=== PATIENT | female | born 1935 | race Caucasian/White ===

== ENCOUNTER 2021-05-29 12:10 | Inpatient (IN) ==
[2021-05-29] MEDS ORDERED: 0.9 % Sodium Chloride 1,000 ML IVC ONE (12:50)
[2021-05-29 13:38] LABS: Hemoglobin 17.6 g/dL (11.5-15.4); Lymphocytes % 8.7 %
[2021-05-29 13:39] LABS: Basophils # 0.1 K/mcL (0.0-0.2); Basophils % 0.6 %; Hematocrit 54.7 % (35.3-44.9); Immature Granulocytes % 0.6 % (0-4); Immature Platelets 5.2 % (1.1-6.1); Lymphocytes # 0.8 K/mcL (0.6-4.6); Mean Corpuscular HGB Conc 32.2 g/dL (31.6-35.5); Mean Corpuscular Hemoglobin 32.7 pg (28.0-33.3); Mean Corpuscular Volume 101.7 fL (83.0-100.0); Mean Platelet Volume 10.2 fL (9.4-12.4); Monocytes % 11.5 %; Neutrophils # 6.9 K/mcL (1.6-8.9); Red Blood Count 5.38 M/mcL (3.82-4.97); Red Cell Distribution Width 14.2 % (11.5-14.5); Segmented Neutrophils % 78.6 %; White Blood Count 8.8 K/mcL (4.3-11.1)
[2021-05-29 13:42] LABS: INR 1.1; Prothrombin Time 12.7 Seconds (9.4-12.1)
[2021-05-29 13:45] LABS: Activated Partial Thrombo Time 28.5 Seconds (26.0-36.0)
[2021-05-29 13:58] LABS: Platelet Count 95 K/mcL (140-400)
[2021-05-29 14:00] LABS: Anisocytosis 1+ (Not Present); Large Platelets Present (Not Present); Platelet Estimate Slight Decrease (Normal)
[2021-05-29 14:23] LABS: Alanine Aminotransferase 54 Units/L (7-52); Albumin 4.3 g/dL (3.5-5.7); Albumin/Globulin Ratio 1.2 (1.1-2.2); Alkaline Phosphatase 85 Units/L (34-104); Aspartate Amino Transferase 173 Units/L (13-39); BUN/Creatinine Ratio 33 (6-26); Bilirubin,Total 1.1 mg/dL (0.3-1.0); Blood Urea Nitrogen 31 mg/dL (8-23); Calcium 9.5 mg/dL (8.6-10.3); Carbon Dioxide 24 mEq/L (23-29); Chloride 112 mEq/L (98-107); Creatine Kinase 4467 Units/L (30-223); Globulin 3.6 g/dL (2.4-3.5); Glucose 100 mg/dL (70-105); Osmolality,Calculated 315 (280-300); Potassium 3.8 mEq/L (3.5-5.1); Sodium 149 mEq/L (136-145); Total Protein 7.9 g/dL (6.4-8.9); eGFR For African Americans > 60 (> 60); eGFR For Non-African Americans 57 (> 60)
[2021-05-29] MEDS ORDERED: 0.9 % Sodium Chloride 1,000 ML IV ONE (16:37)
[2021-05-29 17:47] LABS: Adenovirus Not Detected (Not Detect); Coronavirus 229E Not Detected (Not Detect); Coronavirus HKU1 Not Detected (Not Detect); Coronavirus NL63 Not Detected (Not Detect); Coronavirus OC43 Not Detected (Not Detect)
[2021-05-29 17:48] LABS: Bordetella Pertussis Not Detected (Not Detect); Chlamydophila pneumoniae Not Detected (Not Detect); Human Metapneumovirus Not Detected (Not Detect); Human Rhinovirus/Enterovirus Not Detected (Not Detect); Influenza A Subtype 2009 H1 Not Detected (Not Detect); Influenza B Not Detected (Not Detect); Mycoplasma pneumoniae Not Detected (Not Detect); Parainfluenza Virus 1 Not Detected (Not Detect); Parainfluenza Virus 2 Not Detected (Not Detect); Parainfluenza Virus 3 Not Detected (Not Detect); Parainfluenza Virus 4 Not Detected (Not Detect); Respiratory Syncytial Virus Not Detected (Not Detect); SARS-CoV-2 DETECTED (Not Detect)
[2021-05-29] MEDS ORDERED: Ondansetron ODT 4 MG TAB.RAPDIS SL PRN (18:12)
[2021-05-29] MEDS ORDERED: Naloxone 0.4 MG/ML INJ IVP PRN (18:12)
[2021-05-29] MEDS ORDERED: Dexamethasone Sodium Phos/PF 10 MG/ML VIAL IVP ONE (18:32)
[2021-05-29] MEDS: D5% in 0.9% NACL 1,000 ML IVC SCH (19:01)
[2021-05-29 19:51] LABS: Uric Acid 6.2 mg/dL (2.3-7.6)
[2021-05-30] MEDS: D5% in 0.9% NACL 1,000 ML IVC SCH ×2 (05:12→14:11)
[2021-05-30 07:48] LABS: Red Cell Distribution Width 14.5 % (11.5-14.5)
[2021-05-30 07:51] LABS: Hematocrit 44.9 % (35.3-44.9); Hemoglobin 14.6 g/dL (11.5-15.4); Immature Platelets 6.4 % (1.1-6.1); Mean Corpuscular HGB Conc 32.5 g/dL (31.6-35.5); Mean Corpuscular Hemoglobin 32.4 pg (28.0-33.3); Mean Corpuscular Volume 99.8 fL (83.0-100.0); White Blood Count 6.9 K/mcL (4.3-11.1)
[2021-05-30 07:53] LABS: Platelet Count 96 K/mcL (140-400)
[2021-05-30] MEDS: dexAMETHasone 4 MG TABLET PO SCH (07:56)
[2021-05-30 08:08] LABS: Alanine Aminotransferase 47 Units/L (7-52); Albumin 3.3 g/dL (3.5-5.7); Albumin/Globulin Ratio 1.1 (1.1-2.2); Alkaline Phosphatase 63 Units/L (34-104); Aspartate Amino Transferase 127 Units/L (13-39); BUN/Creatinine Ratio 38 (6-26); Bilirubin,Total 0.6 mg/dL (0.3-1.0); Blood Urea Nitrogen 27 mg/dL (8-23); Calcium 8.1 mg/dL (8.6-10.3); Carbon Dioxide 25 mEq/L (23-29); Chloride 112 mEq/L (98-107); Cholesterol 136 mg/dL (< 200); Globulin 2.9 g/dL (2.4-3.5); Glucose 146 mg/dL (70-105); HDL Cholesterol 27 mg/dL (40-59); LDL Cholesterol,Calculated 87 mg/dL (< 100); Magnesium 2.4 mg/dL (1.6-2.6); Osmolality,Calculated 302 (280-300); Phosphorous 1.8 mg/dL (2.7-4.5); Potassium 3.9 mEq/L (3.5-5.1); Sodium 142 mEq/L (136-145); Total Protein 6.2 g/dL (6.4-8.9); Triglycerides 108 mg/dL (< 150); eGFR For African Americans > 60 (> 60); eGFR For Non-African Americans > 60 (> 60)
[2021-05-30 08:27] LABS: Lymphocytes # 0.9 K/mcL (0.6-4.6); Monocytes # 0.2 K/mcL (0.0-1.3); Neutrophils # 5.8 K/mcL (1.6-8.9); Platelet Estimate Decreased (Normal); Reactive Lymphocytes Present (Not Present)
[2021-05-30] MEDS: Budesonide/Formoterol 80/4.5 1 PUFF INH IH SCH ×2 (08:45→20:51)
[2021-05-30] MEDS ORDERED: *HR* Enoxaparin 40 MG/0.4 ML SYRINGE SQ ONE (11:13)
[2021-05-31] MEDS: D5% in 0.9% NACL 1,000 ML IVC SCH ×2 (04:38→19:24)
[2021-05-31] MEDS: dexAMETHasone 4 MG TABLET PO SCH (08:46)
[2021-05-31] MEDS: Budesonide/Formoterol 80/4.5 1 PUFF INH IH SCH ×2 (11:02→20:41)
[2021-05-31] MEDS: cephALEXin 500 MG CAPSULE PO SCH ×2 (12:27→19:57)
[2021-05-31 15:10] LABS: Mean Corpuscular Volume 99.1 fL (83.0-100.0)
[2021-05-31 15:11] LABS: Hematocrit 41.9 % (35.3-44.9); Immature Platelets 8.6 % (1.1-6.1); Mean Corpuscular HGB Conc 33.4 g/dL (31.6-35.5); Mean Corpuscular Hemoglobin 33.1 pg (28.0-33.3); Mean Platelet Volume 10.6 fL (9.4-12.4); Platelet Count 112 K/mcL (140-400); Red Blood Count 4.23 M/mcL (3.82-4.97); Red Cell Distribution Width 14.3 % (11.5-14.5); White Blood Count 13.6 K/mcL (4.3-11.1)
[2021-05-31 15:30] LABS: Basophils % 0.2 %; Immature Granulocytes % 1.2 % (0-4); Lymphocytes # 0.5 K/mcL (0.6-4.6); Lymphocytes % 3.5 %; Monocytes # 0.5 K/mcL (0.0-1.3); Monocytes % 3.7 %; Neutrophils # 12.4 K/mcL (1.6-8.9); Segmented Neutrophils % 91.4 %
[2021-05-31 15:32] LABS: BUN/Creatinine Ratio 29 (6-26); Blood Urea Nitrogen 19 mg/dL (8-23); Calcium 8.3 mg/dL (8.6-10.3); Carbon Dioxide 22 mEq/L (23-29); Chloride 109 mEq/L (98-107); Creatine Kinase 1066 Units/L (30-223); Glucose 198 mg/dL (70-105); Osmolality,Calculated 294 (280-300); Potassium 3.9 mEq/L (3.5-5.1); Sodium 138 mEq/L (136-145); eGFR For African Americans > 60 (> 60); eGFR For Non-African Americans > 60 (> 60)
[2021-06-01 05:50] LABS: Hematocrit 42.9 % (35.3-44.9); Hemoglobin 14.4 g/dL (11.5-15.4); Mean Corpuscular HGB Conc 33.6 g/dL (31.6-35.5)
[2021-06-01 05:52] LABS: Immature Platelets 9.2 % (1.1-6.1); Mean Corpuscular Hemoglobin 33.3 pg (28.0-33.3); Mean Corpuscular Volume 99.1 fL (83.0-100.0); Red Blood Count 4.33 M/mcL (3.82-4.97); Red Cell Distribution Width 14.2 % (11.5-14.5); White Blood Count 11.4 K/mcL (4.3-11.1)
[2021-06-01 06:32] LABS: BUN/Creatinine Ratio 29 (6-26); Blood Urea Nitrogen 17 mg/dL (8-23); Calcium 8.4 mg/dL (8.6-10.3); Carbon Dioxide 24 mEq/L (23-29); Chloride 109 mEq/L (98-107); Creatine Kinase 723 Units/L (30-223); Glucose 104 mg/dL (70-105); Osmolality,Calculated 290 (280-300); Potassium 3.8 mEq/L (3.5-5.1); Sodium 139 mEq/L (136-145); eGFR For African Americans > 60 (> 60); eGFR For Non-African Americans > 60 (> 60)
[2021-06-01] MEDS: Budesonide/Formoterol 80/4.5 1 PUFF INH IH SCH ×2 (08:44→20:45)
[2021-06-01] MEDS ORDERED: Furosemide 20 MG/2 ML VIAL IVP ONE (08:59)
[2021-06-01] MEDS ORDERED: Sennosides/Docusate Sodium TABLET PO SCH (09:00)
[2021-06-01] MEDS: dexAMETHasone 4 MG TABLET PO SCH (09:20)
[2021-06-01] MEDS: cephALEXin 500 MG CAPSULE PO SCH ×2 (09:21→20:40)
[2021-06-01] MEDS ORDERED: *HR* Heparin 5,000 UNIT/ML VIAL IVP PRN ×2 (11:14)
[2021-06-01] MEDS ORDERED: Isovue-370 500 ML BOTTLE IVP ONE (11:14)
[2021-06-01] MEDS ORDERED: *HR* Heparin 5,000 UNIT/ML VIAL IVP ONE (11:14)
[2021-06-01] MEDS: Heparin 25,000UNIT/250ML 1/2NS 25,000 UNIT/250 ML IV.SOLN IVC SCH (12:14)
[2021-06-01 12:21] LABS: D-Dimer 3863 ng/mLFEU (0-500); Heparin anti-factor XA UFH < 0.04 IU/mL (0.30-0.70); INR 1.1; Prothrombin Time 12.2 Seconds (9.4-12.1)
[2021-06-01 12:22] LABS: Activated Partial Thrombo Time 24.3 Seconds (26.0-36.0)
[2021-06-01 12:24] LABS: VBG HCO3 23 mEq/L (21-27); VBG PCO2 30 mmHg (41-51); VBG PO2 147 mmHg (25-50)
[2021-06-01] MEDS: Carbamide Peroxide 150 DROP/15 ML BOTTLE LEFT EAR SCH ×2 (17:59→20:40)
[2021-06-01] MEDS: D5% in 0.9% NACL 1,000 ML IVC SCH (19:32)
[2021-06-01] MEDS: Sennosides/Docusate Sodium TABLET PO SCH (20:40)
[2021-06-02 03:23] LABS: Hematocrit 39.8 % (35.3-44.9); Hemoglobin 13.3 g/dL (11.5-15.4); Mean Corpuscular HGB Conc 33.4 g/dL (31.6-35.5); Mean Corpuscular Hemoglobin 34.3 pg (28.0-33.3); Mean Corpuscular Volume 102.6 fL (83.0-100.0); Mean Platelet Volume 10.7 fL (9.4-12.4); Platelet Count 152 K/mcL (140-400); Red Blood Count 3.88 M/mcL (3.82-4.97); Red Cell Distribution Width 14.6 % (11.5-14.5); White Blood Count 14.2 K/mcL (4.3-11.1)
[2021-06-02 03:44] LABS: Heparin anti-factor XA UFH 1.62 IU/mL (0.30-0.70)
[2021-06-02 05:26] LABS: Calcium 8.4 mg/dL (8.6-10.3); Potassium 4.3 mEq/L (3.5-5.1)
[2021-06-02] MEDS: Budesonide/Formoterol 80/4.5 1 PUFF INH IH SCH ×2 (07:57→20:30)
[2021-06-02 08:06] LABS: Basophils # 0.1 K/mcL (0.0-0.2); Basophils % 0.5 %; Immature Granulocytes % 2.6 % (0-4); Lymphocytes # 0.7 K/mcL (0.6-4.6); Lymphocytes % 4.5 %; Monocytes # 0.8 K/mcL (0.0-1.3); Monocytes % 5.3 %; Neutrophils # 13.1 K/mcL (1.6-8.9); Nucleated Red Blood Cells 0.1 /100 WBC (0); Segmented Neutrophils % 87.1 %
[2021-06-02] MEDS: Sennosides/Docusate Sodium TABLET PO SCH ×2 (08:08→21:28)
[2021-06-02] MEDS: cephALEXin 500 MG CAPSULE PO SCH ×2 (08:08→21:10)
[2021-06-02] MEDS: dexAMETHasone 4 MG TABLET PO SCH (08:08)
[2021-06-02] MEDS: Carbamide Peroxide 150 DROP/15 ML BOTTLE LEFT EAR SCH ×3 (08:09→21:31)
[2021-06-02] MEDS ORDERED: Furosemide 20 MG/2 ML VIAL IVP SCH (09:00)
[2021-06-02 12:05] LABS: Calcium 8.6 mg/dL (8.6-10.3); Magnesium 2.3 mg/dL (1.6-2.6); Phosphorous 3.4 mg/dL (2.7-4.5); Potassium 4.4 mEq/L (3.5-5.1)
[2021-06-02] MEDS: 0.9 % Sodium Chloride 1,000 ML IVC SCH (16:10)
[2021-06-02] MEDS: Heparin 25,000UNIT/250ML 1/2NS 25,000 UNIT/250 ML IV.SOLN IVC SCH (18:46)
[2021-06-02] MEDS: Melatonin 3 MG TABLET PO PRN (21:10)
[2021-06-03 05:39] LABS: Alanine Aminotransferase 89 Units/L (7-52); Albumin 2.7 g/dL (3.5-5.7); Alkaline Phosphatase 64 Units/L (34-104); Aspartate Amino Transferase 43 Units/L (13-39); BUN/Creatinine Ratio 38 (6-26); Bilirubin,Total 0.7 mg/dL (0.3-1.0); Blood Urea Nitrogen 33 mg/dL (8-23); Calcium 7.9 mg/dL (8.6-10.3); Carbon Dioxide 22 mEq/L (23-29); Chloride 109 mEq/L (98-107); Creatine Kinase 108 Units/L (30-223); Globulin 2.6 g/dL (2.4-3.5); Glucose 110 mg/dL (70-105); Osmolality,Calculated 298 (280-300); Potassium 4.3 mEq/L (3.5-5.1); Sodium 140 mEq/L (136-145); Total Protein 5.3 g/dL (6.4-8.9); eGFR For African Americans > 60 (> 60); eGFR For Non-African Americans > 60 (> 60)
[2021-06-03 05:52] LABS: Basophils # 0.1 K/mcL (0.0-0.2); Basophils % 0.6 %; Hemoglobin 9.2 g/dL (11.5-15.4); Immature Granulocytes % 5.7 % (0-4); Lymphocytes # 1.1 K/mcL (0.6-4.6); Lymphocytes % 9.3 %; Mean Corpuscular HGB Conc 32.9 g/dL (31.6-35.5); Mean Corpuscular Hemoglobin 32.5 pg (28.0-33.3); Mean Corpuscular Volume 98.9 fL (83.0-100.0); Mean Platelet Volume 10.6 fL (9.4-12.4); Monocytes # 0.9 K/mcL (0.0-1.3); Monocytes % 7.8 %; Neutrophils # 9.2 K/mcL (1.6-8.9); Nucleated Red Blood Cells 0.2 /100 WBC (0); Platelet Count 164 K/mcL (140-400); Red Blood Count 2.83 M/mcL (3.82-4.97); Red Cell Distribution Width 14.5 % (11.5-14.5); Segmented Neutrophils % 76.6 %
[2021-06-03 05:54] LABS: Platelet Estimate Normal (Normal)
[2021-06-03] MEDS: Budesonide/Formoterol 80/4.5 1 PUFF INH IH SCH ×2 (07:29→20:11)
[2021-06-03] MEDS: Sennosides/Docusate Sodium TABLET PO SCH ×2 (08:46→20:38)
[2021-06-03] MEDS: cephALEXin 500 MG CAPSULE PO SCH ×2 (08:46→20:38)
[2021-06-03] MEDS: dexAMETHasone 4 MG TABLET PO SCH (08:46)
[2021-06-03] MEDS: Carbamide Peroxide 150 DROP/15 ML BOTTLE LEFT EAR SCH ×3 (08:47→20:39)
[2021-06-03] MEDS: 0.9 % Sodium Chloride 1,000 ML IVC SCH (08:51)
[2021-06-03] MEDS: Heparin 25,000UNIT/250ML 1/2NS 25,000 UNIT/250 ML IV.SOLN IVC SCH (10:38)
[2021-06-04 01:52] LABS: Alanine Aminotransferase 82 Units/L (7-52); Albumin 2.8 g/dL (3.5-5.7); Albumin/Globulin Ratio 1.1 (1.1-2.2); Alkaline Phosphatase 63 Units/L (34-104); Aspartate Amino Transferase 44 Units/L (13-39); BUN/Creatinine Ratio 48 (6-26); Bilirubin,Total 0.6 mg/dL (0.3-1.0); Blood Urea Nitrogen 27 mg/dL (8-23); C-Reactive Protein 35 mg/L (Less than 10); Calcium 8.1 mg/dL (8.6-10.3); Carbon Dioxide 24 mEq/L (23-29); Chloride 109 mEq/L (98-107); Creatine Kinase 114 Units/L (30-223); Globulin 2.6 g/dL (2.4-3.5); Glucose 124 mg/dL (70-105); Osmolality,Calculated 297 (280-300); Potassium 4.2 mEq/L (3.5-5.1); Sodium 140 mEq/L (136-145); Total Protein 5.4 g/dL (6.4-8.9); eGFR For African Americans > 60 (> 60); eGFR For Non-African Americans > 60 (> 60)
[2021-06-04 02:51] LABS: Hematocrit 26.5 % (35.3-44.9); Hemoglobin 8.6 g/dL (11.5-15.4); Mean Corpuscular HGB Conc 32.5 g/dL (31.6-35.5); Mean Corpuscular Hemoglobin 32.8 pg (28.0-33.3); Mean Corpuscular Volume 101.1 fL (83.0-100.0); Mean Platelet Volume 10.6 fL (9.4-12.4); Nucleated Red Blood Cells 0.4 /100 WBC (0); Platelet Count 204 K/mcL (140-400); Red Blood Count 2.62 M/mcL (3.82-4.97); Red Cell Distribution Width 14.2 % (11.5-14.5); White Blood Count 11.2 K/mcL (4.3-11.1)
[2021-06-04 05:33] LABS: Lymphocytes # 1.6 K/mcL (0.6-4.6); Monocytes # 0.5 K/mcL (0.0-1.3); Neutrophils # 8.7 K/mcL (1.6-8.9); Platelet Estimate Normal (Normal)
[2021-06-04] MEDS: dexAMETHasone 4 MG TABLET PO SCH (07:44)
[2021-06-04] MEDS: cephALEXin 500 MG CAPSULE PO SCH ×2 (07:44→19:55)
[2021-06-04] MEDS: Carbamide Peroxide 150 DROP/15 ML BOTTLE LEFT EAR SCH ×3 (07:45→19:56)
[2021-06-04] MEDS: Sennosides/Docusate Sodium TABLET PO SCH ×2 (07:47→19:55)
[2021-06-04] MEDS: Budesonide/Formoterol 80/4.5 1 PUFF INH IH SCH ×2 (08:13→19:36)
[2021-06-04 08:18] LABS: Bilirubin,Urine Negative (Negative); Blood,Urine Moderate (Negative); Clarity,Urine Clear (Clear); Color,Urine Light-Yellow (Yellow); Glucose,Urine (UA) Normal (Normal); Ketones,Urine Negative (Negative); Leukocyte Esterase,Urine Small (Negative); Mucus,Urine Few per lpf (None-Few); Nitrite,Urine Negative (Negative); Protein,Urine Trace mg/dL (Neg-Trace); RBC,Urine 50-100 per hpf (0-3); Specific Gravity,Urine 1.024 (1.010-1.025); Urobilinogen,Urine Normal (Normal); WBC,Urine 15-30 per hpf (0-3)
[2021-06-04 11:03] LABS: % Iron Saturation 58 % (15-50); Iron 134 mcg/dL (50-170); Transferrin 164 mg/dL (203-362)
[2021-06-04 11:26] LABS: Folate 17.1 ng/mL (3.0-16.0)
[2021-06-04] MEDS: Heparin 25,000UNIT/250ML 1/2NS 25,000 UNIT/250 ML IV.SOLN IVC SCH (11:34)
[2021-06-04 12:16] LABS: Ferritin 875 ng/mL (10-120)
[2021-06-04 17:30] LABS: Hematocrit 26.5 % (35.3-44.9); Hemoglobin 9.5 g/dL (11.5-15.4)
[2021-06-04] MEDS: Pantoprazole 40 MG VIAL IVP SCH (17:44)
[2021-06-05 01:04] LABS: Alanine Aminotransferase 73 Units/L (7-52); Albumin 2.7 g/dL (3.5-5.7); Alkaline Phosphatase 62 Units/L (34-104); Aspartate Amino Transferase 40 Units/L (13-39); BUN/Creatinine Ratio 44 (6-26); Bilirubin,Total 0.7 mg/dL (0.3-1.0); Blood Urea Nitrogen 26 mg/dL (8-23); Calcium 8.1 mg/dL (8.6-10.3); Carbon Dioxide 26 mEq/L (23-29); Chloride 108 mEq/L (98-107); Globulin 2.6 g/dL (2.4-3.5); Glucose 92 mg/dL (70-105); Osmolality,Calculated 292 (280-300); Potassium 4.1 mEq/L (3.5-5.1); Sodium 139 mEq/L (136-145); Total Protein 5.3 g/dL (6.4-8.9); eGFR For African Americans > 60 (> 60); eGFR For Non-African Americans > 60 (> 60)
[2021-06-05 03:26] LABS: Hematocrit 27.2 % (35.3-44.9); Hemoglobin 8.9 g/dL (11.5-15.4); Mean Corpuscular HGB Conc 32.7 g/dL (31.6-35.5); Mean Corpuscular Hemoglobin 33.5 pg (28.0-33.3); Mean Corpuscular Volume 102.3 fL (83.0-100.0); Mean Platelet Volume 10.4 fL (9.4-12.4); Nucleated Red Blood Cells 0.8 /100 WBC (0); Platelet Count 257 K/mcL (140-400); Red Blood Count 2.66 M/mcL (3.82-4.97); Red Cell Distribution Width 14.2 % (11.5-14.5); White Blood Count 13.4 K/mcL (4.3-11.1)
[2021-06-05 04:26] LABS: Lymphocytes # 2.4 K/mcL (0.6-4.6); Monocytes # 0.4 K/mcL (0.0-1.3); Neutrophils # 10.6 K/mcL (1.6-8.9)
[2021-06-05 04:27] LABS: Platelet Estimate Normal (Normal); Reactive Lymphocytes Present (Not Present)
[2021-06-05] MEDS: Pantoprazole 40 MG VIAL IVP SCH ×2 (06:25→17:35)
[2021-06-05] MEDS: Budesonide/Formoterol 80/4.5 1 PUFF INH IH SCH ×2 (07:56→20:38)
[2021-06-05] MEDS: Carbamide Peroxide 150 DROP/15 ML BOTTLE LEFT EAR SCH ×3 (09:22→21:24)
[2021-06-05] MEDS ORDERED: D5% in Water 1,000 ML IVC PRN (12:21)
[2021-06-05] MEDS ORDERED: Dextrose Gel 15 GM/37.5 ML TUBE PO PRN ×2 (12:21)
[2021-06-05] MEDS ORDERED: *HR* Dextrose 50 % in Water (Syg) 50 ML SYRINGE IVP PRN (12:21)
[2021-06-05] MEDS: Sennosides/Docusate Sodium TABLET PO SCH ×2 (13:05→21:23)
[2021-06-05] MEDS: dexAMETHasone 4 MG TABLET PO SCH (13:05)
[2021-06-05] MEDS: cefTRIAXone 2,000 MG in 0.9 % Sodium Chloride Mini Bag 100 ML IVPB SCH (13:06)
[2021-06-05] MEDS: cephALEXin 500 MG CAPSULE PO SCH (13:44)
[2021-06-05] MEDS: Melatonin 3 MG TABLET PO PRN (21:24)
[2021-06-06 05:28] LABS: Hemoglobin 9.2 g/dL (11.5-15.4); Mean Corpuscular HGB Conc 36.8 g/dL (31.6-35.5); Mean Corpuscular Hemoglobin 38.8 pg (28.0-33.3); Mean Corpuscular Volume 105.5 fL (83.0-100.0); Mean Platelet Volume 9.9 fL (9.4-12.4); Platelet Count 236 K/mcL (140-400); Red Blood Count 2.37 M/mcL (3.82-4.97); Red Cell Distribution Width 14.4 % (11.5-14.5); White Blood Count 12.5 K/mcL (4.3-11.1)
[2021-06-06 05:47] LABS: BUN/Creatinine Ratio 44 (6-26); Blood Urea Nitrogen 24 mg/dL (8-23); Calcium 8.5 mg/dL (8.6-10.3); Carbon Dioxide 27 mEq/L (23-29); Chloride 105 mEq/L (98-107); Glucose 115 mg/dL (70-105); Magnesium 2.2 mg/dL (1.6-2.6); Osmolality,Calculated 283 (280-300); Potassium 4.2 mEq/L (3.5-5.1); Sodium 134 mEq/L (136-145); eGFR For African Americans > 60 (> 60); eGFR For Non-African Americans > 60 (> 60)
[2021-06-06] MEDS: Pantoprazole 40 MG VIAL IVP SCH ×2 (06:15→17:10)
[2021-06-06] MEDS: dexAMETHasone 4 MG TABLET PO SCH (10:13)
[2021-06-06] MEDS: Sennosides/Docusate Sodium TABLET PO SCH ×2 (10:14→20:53)
[2021-06-06] MEDS: cefTRIAXone 2,000 MG in 0.9 % Sodium Chloride Mini Bag 100 ML IVPB SCH (10:14)
[2021-06-06] MEDS: Carbamide Peroxide 150 DROP/15 ML BOTTLE LEFT EAR SCH ×3 (10:16→20:53)
[2021-06-06] MEDS: Budesonide/Formoterol 80/4.5 1 PUFF INH IH SCH ×2 (10:32→20:13)
[2021-06-06] MEDS: Melatonin 3 MG TABLET PO PRN (20:53)
[2021-06-07] MEDS: Pantoprazole 40 MG VIAL IVP SCH ×2 (06:05→17:55)
[2021-06-07] MEDS: *HR* Enoxaparin 40 MG/0.4 ML SYRINGE SQ SCH (06:06)
[2021-06-07] MEDS: Budesonide/Formoterol 80/4.5 1 PUFF INH IH SCH ×2 (08:24→20:54)
[2021-06-07] MEDS: dexAMETHasone 4 MG TABLET PO SCH (09:20)
[2021-06-07] MEDS: Sennosides/Docusate Sodium TABLET PO SCH ×2 (09:21→20:15)
[2021-06-07] MEDS: Carbamide Peroxide 150 DROP/15 ML BOTTLE LEFT EAR SCH ×3 (09:25→20:15)
[2021-06-07] MEDS: Melatonin 3 MG TABLET PO PRN (21:38)
[2021-06-08 01:57] LABS: Basophils # 0.1 K/mcL (0.0-0.2); Basophils % 0.5 %; Eosinophils # 0.1 K/mcL (0.0-0.6); Eosinophils % 0.5 %; Hematocrit 25.6 % (35.3-44.9); Hemoglobin 9.4 g/dL (11.5-15.4); Immature Granulocytes % 8.1 % (0-4); Lymphocytes # 1.3 K/mcL (0.6-4.6); Lymphocytes % 10.4 %; Mean Corpuscular HGB Conc 36.7 g/dL (31.6-35.5); Mean Corpuscular Hemoglobin 38.2 pg (28.0-33.3); Mean Corpuscular Volume 104.1 fL (83.0-100.0); Mean Platelet Volume 9.6 fL (9.4-12.4); Monocytes # 0.7 K/mcL (0.0-1.3); Monocytes % 6.1 %; Neutrophils # 9.1 K/mcL (1.6-8.9); Nucleated Red Blood Cells 0.3 /100 WBC (0); Platelet Count 250 K/mcL (140-400); Red Blood Count 2.46 M/mcL (3.82-4.97); Red Cell Distribution Width 14.7 % (11.5-14.5); Segmented Neutrophils % 74.4 %; White Blood Count 12.2 K/mcL (4.3-11.1)
[2021-06-08 02:13] LABS: BUN/Creatinine Ratio 46 (6-26); Blood Urea Nitrogen 25 mg/dL (8-23); Calcium 8.3 mg/dL (8.6-10.3); Carbon Dioxide 25 mEq/L (23-29); Chloride 102 mEq/L (98-107); Glucose 108 mg/dL (70-105); Osmolality,Calculated 283 (280-300); Potassium 4.3 mEq/L (3.5-5.1); Sodium 134 mEq/L (136-145); eGFR For African Americans > 60 (> 60); eGFR For Non-African Americans > 60 (> 60)
[2021-06-08] MEDS: *HR* Enoxaparin 40 MG/0.4 ML SYRINGE SQ SCH (05:20)
[2021-06-08] MEDS: Pantoprazole 40 MG VIAL IVP SCH ×2 (05:47→18:08)
[2021-06-08] MEDS: Budesonide/Formoterol 80/4.5 1 PUFF INH IH SCH ×2 (08:39→21:00)
[2021-06-08] MEDS: Sennosides/Docusate Sodium TABLET PO SCH ×3 (08:41→20:30)
[2021-06-08] MEDS: dexAMETHasone 4 MG TABLET PO SCH (08:41)
[2021-06-08] MEDS: Carbamide Peroxide 150 DROP/15 ML BOTTLE LEFT EAR SCH ×3 (08:41→20:23)
[2021-06-08] MEDS: Melatonin 3 MG TABLET PO PRN (21:50)
[2021-06-09] MEDS: *HR* Enoxaparin 40 MG/0.4 ML SYRINGE SQ SCH (05:06)
[2021-06-09] MEDS: Pantoprazole 40 MG VIAL IVP SCH (05:16)
[2021-06-09 07:56] LABS: Hematocrit 26.6 % (35.3-44.9); Hemoglobin 9.7 g/dL (11.5-15.4); Mean Corpuscular HGB Conc 36.5 g/dL (31.6-35.5); Mean Corpuscular Hemoglobin 38.2 pg (28.0-33.3); Mean Corpuscular Volume 104.7 fL (83.0-100.0); Mean Platelet Volume 9.7 fL (9.4-12.4); Nucleated Red Blood Cells 0.2 /100 WBC (0); Platelet Count 273 K/mcL (140-400); Red Blood Count 2.54 M/mcL (3.82-4.97); Red Cell Distribution Width 15.4 % (11.5-14.5); White Blood Count 10.7 K/mcL (4.3-11.1)
[2021-06-09] MEDS: Budesonide/Formoterol 80/4.5 1 PUFF INH IH SCH (08:01)
[2021-06-09 08:17] LABS: BUN/Creatinine Ratio 48 (6-26); Blood Urea Nitrogen 29 mg/dL (8-23); Calcium 8.7 mg/dL (8.6-10.3); Carbon Dioxide 25 mEq/L (23-29); Chloride 102 mEq/L (98-107); Glucose 103 mg/dL (70-105); Osmolality,Calculated 286 (280-300); Potassium 3.7 mEq/L (3.5-5.1); Sodium 135 mEq/L (136-145); eGFR For African Americans > 60 (> 60); eGFR For Non-African Americans > 60 (> 60)
[2021-06-09 08:27] LABS: Monocytes # 0.4 K/mcL (0.0-1.3); Platelet Estimate Normal (Normal); Reactive Lymphocytes Present (Not Present)
[2021-06-09 08:30] LABS: Eosinophils # 0.1 K/mcL (0.0-0.6); Lymphocytes # 3.1 K/mcL (0.6-4.6); Neutrophils # 6.7 K/mcL (1.6-8.9)
[2021-06-09 08:32] LABS: Anisocytosis 1+ (Not Present)
[2021-06-09] MEDS: Sennosides/Docusate Sodium TABLET PO SCH (08:37)
[2021-06-09] MEDS: Carbamide Peroxide 150 DROP/15 ML BOTTLE LEFT EAR SCH (08:38)
[2021-06-09 11:18] LABS: Influenza A PCR Negative (Negative); Influenza B PCR Negative (Negative); Resp. Syncytial Virus PCR Negative (Negative)
[2021-06-09 11:21] LABS: SARS-CoV-2 by PCR (In House) Positive (Negative)
[2021-06-09 12:15] VITALS: BP 97/62; PULSE 97; TEMP 97.6; O2SAT 94
== END 2021-06-09 14:00 | disposition other institution (70) | DRG 177 ==
LOC: EMEROOARM 12:10 → 3ANU 12:10 → SUATTDRO 17:25 → 3ANU 18:29
PROVIDERS: ADMIT Student in an Organized Health Care Education/Training Program; ATTEND Internal Medicine